=== PATIENT | male | born 1950 | race American Indian/Alaskan Native ===

== ENCOUNTER 2017-10-15 11:24 | Outpatient (CLI) | payer MEDICARE, OTHER ==
--- NOTE | 2017-10-16 19:09 | Magnetic Resonance Report ---
MR scan of the cranium was performed without contrast. Pulse sequences included: 1. T1 weighted sagittal and axial images without contrast 2. T2 weighted axial and coronal images 3. FLAIR axial images 4. Diffusion-weighted axial images 5. Apparent diffusion coefficient images Views of the posterior fossa showed a normal craniocervical junction. Cerebellar pontine angles were normal with normal seventh-eighth nerve complexes. Brainstem and cerebellum were normal. The ventricular system showed mild dilatation but no distortion. Some enlargement was noted in the temporal horns Images of the hemispheres showed minimal white matter changes in the burrows radiata consistent with araiosis. A small infarct was seen in the right thalamus. there was mild enlargement of the Sylvian fissures. Sinuses, flow voids in the [place], orbits, and basal ganglia were normal. Views of the pituitary showed an empty sella. Impression: Abnormal MR scan of the cranium without contrast. a. empty sella b. mild ventricular dilation with enlargement of the temporal horns c. mild white matter araiosis d. 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
== END 2017-10-15 11:25 | disposition home or self-care (01) ==
LOC: SPVIMAG 11:24
PROVIDERS: ATTEND Specialist
DX: I63.9 Cerebral infarction, unspecified (principal); R41.1 Anterograde amnesia; R93.8 Abnormal findings on diagnostic imaging of other specified body structures
CPT/HCPCS: 70551

== ENCOUNTER 2017-10-22 14:21 | Outpatient (CLI) | payer MEDICARE, OTHER ==
[2017-10-22 14:37] LABS: Hematocrit 46.8 % (35.5-45.6); Hemoglobin 15.3 gm/dl (11.8-15.2); Mean Corpuscular HGB Conc 33 % (32-34); Mean Corpuscular Hemoglobin 27 pg (28-32); Mean Corpuscular Volume 83 fl (84-94); Platelet Count 224 K/mm3 (140-440); Red Blood Count 5.62 M/mm3 (3.65-5.03); Red Cell Distribution Width 14.1 % (13.2-15.2)
[2017-10-22 14:56] LABS: Alanine Aminotransferase 12 units/L (7-56); Albumin 3.4 g/dL (3.9-5); BUN/Creatinine Ratio 8; Blood Urea Nitrogen 8 mg/dL (9-20); Calcium 8.9 mg/dL (8.4-10.2); Hemolysis Index 24
[2017-10-22 15:09] LABS: Free T4 (Free Thyroxine) 1.1 ng/dL (0.76-1.46)
== END 2017-10-22 14:22 | disposition home or self-care (01) ==
LOC: LAB 14:21
PROVIDERS: ATTEND Specialist
DX: R41.1 Anterograde amnesia (principal)
CPT/HCPCS: 36415; 80053; 82607; 82747; 84439; 84443; 85027

== ENCOUNTER 2017-12-10 10:39 | Day surgery (SDC) | payer MEDICARE, OTHER ==
[2017-12-10 11:35] LABS: Basophils % (Auto) 0.8 % (0.0-1.8); Eosinophils # (Auto) 0.1 K/mm3 (0.0-0.4); Eosinophils % (Auto) 1.8 % (0.0-4.3); Hematocrit 46.6 % (35.5-45.6); Hemoglobin 15.9 gm/dl (11.8-15.2); Lymphocytes # (Auto) 2.6 K/mm3 (1.2-5.4); Lymphocytes % (Auto) 46.4 % (13.4-35.0); Mean Corpuscular HGB Conc 34 % (32-34); Mean Corpuscular Hemoglobin 28 pg (28-32); Mean Corpuscular Volume 82 fl (84-94); Monocytes # (Auto) 0.3 K/mm3 (0.0-0.8); Monocytes % (Auto) 6.1 % (0.0-7.3); Platelet Count 247 K/mm3 (140-440); Red Blood Count 5.68 M/mm3 (3.65-5.03); Red Cell Distribution Width 13.8 % (13.2-15.2)
[2017-12-10 11:52] LABS: INR 0.88 (0.87-1.13); Partial Thromboplastin Time 25.5 Sec. (24.2-36.6)
--- NOTE | 2017-12-10 15:42 | Short Stay Summary ---
Short Stay Documentation Date of service: 12/10/17 - History Principal diagnosis: alzheimers disease H&P: obtained from office - Allergies and Medications Current Medications: Allergies lisinopril Adverse Reaction (Unverified 12/10/17 10:39) Dizziness Home Medications Medication Instructions Recorded Confirmed Last Taken Type Apixaban [Eliquis] 5 mg PO BID 12/10/17 12/10/17 12/03/17 History 5mg Donepezil HCl 10 mg PO DAILY 12/10/17 12/10/17 12/09/17 History 10mg - Physical exam General appearance: no acute distress - Brief post op/procedure progress note Date of procedure: 12/10/17 Pre-op diagnosis: alzheimers Post-op diagnosis: same Procedure: Lumbar puncture Anesthesia: local Findings: none Surgeon: LALI RICHARDSON Estimated blood loss: none Pathology: list (2 tubes) Specimen disposition: to lab Condition: stable - Disposition Condition at discharge: Good Disposition: DC-01 TO HOME OR SELFCARE Short Stay Discharge Plan Follow up with: ULISSES ISAACS MD [Primary Care Provider] - 7 Days
[2017-12-10 16:47] VITALS: BP 147/66
[2017-12-10 18:00] LABS: Glucose,CSF 116 mg/dL
[2017-12-10 18:39] LABS: Appearance,CSF Hazy
[2017-12-10 18:44] LABS: Red Blood Cell,CSF 4650 /mm3 (0-0); White Blood Cell,CSF 8 /mm3 (1-10)
[2017-12-10 18:47] LABS: Total Cells Counted 25 /mm3
[2017-12-10 18:48] LABS: Basophils CSF 0 %
--- NOTE | 2017-12-11 07:20 | Fluoroscopy Report ---
FLUOROSCOPY LUMBAR PUNCTURE History: Altered mental status, Alzheimer's disease. Description of procedure: Informed consent was obtained. Sterile technique was utilized. 1% lidocaine for skin anesthesia. Using fluoroscopy guidance, lumbar puncture was performed at the L3-4 level. There was spontaneous return of blood-tinged CSF. Only 2.5 cc of fluid could be collected. The samples were sent to laboratory for analysis. The patient tolerated the procedure without difficulty. Impression: Successful fluoroscopy a lumbar puncture although only 2.5 cc of CSF fluid could be collected.
== END 2017-12-10 17:00 | disposition home or self-care (01) ==
LOC: CATHLABREC 10:39 → EDSTATUS 11:30 → CATHLABREC 17:00
PROVIDERS: ATTEND Specialist
DX: G30.9 Alzheimer's disease, unspecified (principal); Z88.8 Allergy status to other drugs, medicaments and biological substances; Z79.899 Other long term (current) drug therapy; Z79.01 Long term (current) use of anticoagulants
CPT/HCPCS: 36415; 62270; 77003; 82947; 84160; 85025; 85610; 85730; 89051